=== PATIENT | male | born 2000 | race Caucasian/White ===

== ENCOUNTER 2020-07-17 11:49 | Emergency (ER) | payer SELFPAY ==
--- NOTE | 2020-07-17 11:56 | ED.GENADULT ---
HPI - General Adult General Chief complaint: Skin/Abscess/Foreign Body Stated complaint: infected left 3rd finger Time Seen by Provider: 07/17/20 11:56 Source: patient Mode of arrival: ambulatory Limitations: no limitations History of Present Illness HPI narrative: 20-year-old male patient presents to the [facility] with complaints of left third finger redness and swelling for the past 3 days. Patient states that he thinks he had an ingrown nail and picked at it and states it started getting red and swollen. Patient did try to open it up with a hot needle and states that it is currently draining. Denies any fevers, body aches or chills. Related Data Allergies Allergy/AdvReac Type Severity Reaction Status Date / Time No Known Allergies Allergy Verified 07/17/20 12:04 Review of Systems Review of Systems: Narrative: CONSTITUTIONAL: Denies fever, chills, or sweats. EYES: Denies visual changes, redness, or discharge. ENT: Denies rhinorrhea, congestion, sore throat, or otalgia. CARDIOVASCULAR: Denies chest pain, palpitations, or edema. RESPIRATORY: Denies cough or dyspnea. GASTROINTESTINAL: Denies abdominal pain, nausea, vomiting, or diarrhea. GENITOURINARY: Denies dysuria or hematuria. SKIN: Denies rash or itching. Positive left third finger redness and swelling around the nailbed x3 days MUSCULOSKELETAL: Denies back pain, joint pain, or myalgia. NEUROLOGIC: Denies headache, numbness, or weakness. PSYCHIATRIC: Denies anxiety or depression. PMFSH Social History Social History Gender identity (if verbalized by the patient): Male Comments At the time of my signature I agree with nursing past medical history, surgical, social, and family history. There is no relevant family history pertinent to the presenting complaint. Exam Narrative: Exam Narrative: GENERAL: Well-appearing, well-nourished, and in no acute distress. HEAD: Normocephalic, atraumatic. EYES: PERRLA and EOMI. ENT: Nares clear, no rhinorrhea or epistaxis. Mucous membranes moist. NECK: Supple. No lymphadenopathy CHEST: Clear to auscultation. No respiratory distress. HEART: Regular rate and rhythm. No murmur heard. Normal peripheral pulses. ABDOMEN: Soft, nontender, nondistended, normal active bowel sounds. EXTREMITIES: Normal range of motion. No edema. SKIN: Warm, dry, no rash. Patient has obvious paronychia noted around the left third finger with some swelling, warmth noted around the nailbed. There is some active drainage with some yellow pus coming out of the nailbed when pressure is applied to the area. Patient has good cap refill and good sensation intact. NEURO: No focal deficits. Alert and oriented x3. Course Vital Signs Vital signs: Vital Signs Temperature 36.4 C 07/17/20 12:00 Pulse Rate 78 07/17/20 12:00 Respiratory Rate 16 07/17/20 12:00 Blood Pressure 147/92 H 07/17/20 12:00 Pulse Oximetry 99 07/17/20 12:00 Temperature 36.4 C 07/17/20 12:00 Pulse Rate 78 07/17/20 12:00 Respiratory Rate 16 07/17/20 12:00 Blood Pressure 147/92 H 07/17/20 12:00 Pulse Oximetry 99 07/17/20 12:00 Wound signs reviewed The patient has been informed that they may have pre-hypertension or Hypertension based on a BP reading in the department. I recommend that the patient call the primary care provider listed on their discharge instructions or a physician of their choice this week to arrange follow up for further evaluation of possible pre-hypertension or Hypertension Medical Decision Making Differential Diagnosis Differential Diagnosis: Differential diagnosis: Abscess, cellulitis, hidradenitis, laceration, puncture wound. Paronychia, felon, cellulitis, flexor tenosynovitis, mallet finger, boutonniere deformity, flexor tendons, dislocated digits, unstable fracture, unstable ligamentous injury, closed space infection, carpal tunnel syndrome, contusion. Discussed with patient that he nee
[2020-07-17 12:00] VITALS: BP 147/92; PULSE 78; RESP 16; TEMP 36.4; O2SAT 99
== END 2020-07-17 12:11 | disposition home or self-care (01) ==
PROVIDERS: Emergency Provider Nurse Practitioner Family; PCP Family Medicine
DX: L03.012 Cellulitis of left finger (principal)
CPT/HCPCS: 99213; G0463

== ENCOUNTER 2020-09-03 10:17 | Emergency (ER) | payer SELFPAY ==
--- NOTE | 2020-09-03 10:22 | ED.SKABFB ---
HPI - Skin/Abscess/Foreign Bdy General Chief complaint: Skin/Abscess/Foreign Body Stated complaint: ingrown hair Source: patient and RN notes reviewed Mode of arrival: ambulatory Limitations: no limitations History of Present Illness HPI narrative: 20-year-old male presents with concern for a abscess on his right buttock. Reports he tried to use a needle to drain it last night and got a small amount of white pus. He denies fever, general malaise, change in bowel habits. Denies any history of similar problems in the past. MD complaint: abscess/boil Related Data Allergies Allergy/AdvReac Type Severity Reaction Status Date / Time No Known Allergies Allergy Verified 09/03/20 10:26 Review of Systems Review of Systems: Narrative: CONSTITUTIONAL: Denies malaise, chills, sweats, or fever. CARDIOVASCULAR: Denies chest pain, palpitations, or edema. RESPIRATORY: Denies cough or dyspnea. GASTROINTESTINAL: Denies abdominal pain, nausea, vomiting, diarrhea, bloody, mucous stools, change in bowel habits. SKIN: Reports abscess on the right buttock MUSCULOSKELETAL: Denies myalgia. All systems reviewed & are unremarkable except as noted in HPI and below PMFSH Social History Social History Gender identity (if verbalized by the patient): Male Comments At time of signature, agree with nursing past medical, surgical, social and family history. There is no relevant family history pertinent to the presenting complaint Exam Narrative: Exam Narrative: GENERAL: Well-appearing, well-nourished, and in no acute distress. HEAD: Normocephalic EYES: PERRLA, conjunctivae clear ENT: Mucous membranes moist. NECK: Supple. CHEST: No respiratory distress.Speaks in full sentences. HEART: Regular rate and rhythm. SKIN: Warm, dry. 3 cm x 4 cm area of erythema, induration noted to the right buttock NEURO: Alert and oriented x3. PSYCH: Normal mood and affect Back/Spine/Pelvis: Back/spine/pelvis image: 1. 4 cm x 3 cm area of erythema, induration with central scab, minimal fluctuation. No tracking noted, not in the pilonidal area. Course Course Emergency Course: Patient is aware of diagnosis, understands and agrees to treatment plan. Anticipatory guidance given. Patient agrees to follow-up as directed and is aware of reasons to seek care at the emergency department. Portions of this record may have been created with voice recognition software Vital Signs Vital signs: Vital Signs Temperature 98.0 F 09/03/20 10:32 Pulse Rate 101 H 09/03/20 10:32 Respiratory Rate 16 09/03/20 10:32 Blood Pressure 141/94 H 09/03/20 10:32 Pulse Oximetry 99 09/03/20 10:32 Temperature 98.0 F 09/03/20 10:32 Pulse Rate 101 H 09/03/20 10:32 Respiratory Rate 16 09/03/20 10:32 Blood Pressure 141/94 H 09/03/20 10:32 Pulse Oximetry 99 09/03/20 10:32 Reviewed. Pt has been instructed to follow up with his primary care provider within the next week regarding his elevated blood pressure today. Procedures Abscess I/D other: Date of Incision: 09/03/20 Time of Incision: 10:40 Side (if applicable): right Local Anesthetic: lidocaine 1% Amount of anesthesia used (mL): 3 Technique: incised with #11 blade Amount of fluid expressed (mL): 2 Irrigation: No Packing used?: none I&D Results: Pus MDM - Skin/Abscess/Foreign Bdy MDM Narrative Medical decision making narrative: Verbal consent were obtained. The indication for the procedure was clinical suspicion for an abscess. . The most fluctuant portion of the abscess was incised with an 11 blade scalpel. The abscess cavity of explored and evacuated, all loculations were broken up with a curved hemostat. I was present for this entire procedure and there were no complications Critical Care Time Critical Care Time Critical Care Time: No Discharge Plan Discharge Clinical Impression
[2020-09-03 10:32] VITALS: BP 141/94; PULSE 101; RESP 16; TEMP 36.7; O2SAT 99
== END 2020-09-03 10:56 | disposition home or self-care (01) ==
PROVIDERS: Emergency Provider Nurse Practitioner; PCP Family Medicine
DX: L02.31 Cutaneous abscess of buttock (principal)
CPT/HCPCS: 10060; 99213; G0463

== ENCOUNTER 2020-09-28 09:33 | Emergency (ER) | payer OTHER, SELFPAY ==
--- NOTE | 2020-09-28 09:36 | ED.GENADULT ---
HPI - General Adult General Chief complaint: Skin/Abscess/Foreign Body Stated complaint: Cyst on tail bone Time Seen by Provider: 09/28/20 09:36 Source: patient Mode of arrival: ambulatory Limitations: no limitations History of Present Illness HPI narrative: 20-year-old male patient presents to the [facility] with complaints of wound to the tailbone for the past 6 days. Patient states he has had abscesses there before. Patient states it was very painful however yesterday it did pop and has been draining some yellow discharge. Patient rates his pain today 0 out of 10. Patient states he has been cleaning it with soap and water and putting antibiotic ointment on it. Denies any fevers, body aches or chills. Related Data Allergies Allergy/AdvReac Type Severity Reaction Status Date / Time No Known Allergies Allergy Verified 09/28/20 09:43 Review of Systems Review of Systems: Narrative: CONSTITUTIONAL: Denies fever, chills, or sweats. EYES: Denies visual changes, redness, or discharge. ENT: Denies rhinorrhea, congestion, sore throat, or otalgia. CARDIOVASCULAR: Denies chest pain, palpitations, or edema. RESPIRATORY: Denies cough or dyspnea. GASTROINTESTINAL: Denies abdominal pain, nausea, vomiting, or diarrhea. GENITOURINARY: Denies dysuria or hematuria. SKIN: Denies rash or itching. Positive wound to tailbone x6 days MUSCULOSKELETAL: Denies back pain, joint pain, or myalgia. NEUROLOGIC: Denies headache, numbness, or weakness. PSYCHIATRIC: Denies anxiety or depression. [facility] Social History Social History Gender identity (if verbalized by the patient): Male Comments At the time of my signature I agree with nursing past medical history, surgical, social, and family history. There is no relevant family history pertinent to the presenting complaint. Exam Narrative: Exam Narrative: GENERAL: Well-appearing, well-nourished, and in no acute distress. HEAD: Normocephalic, atraumatic. EYES: PERRLA and EOMI. ENT: Nares clear, no rhinorrhea or epistaxis. Mucous membranes moist. NECK: Supple. No lymphadenopathy CHEST: Clear to auscultation. No respiratory distress. HEART: Regular rate and rhythm. No murmur heard. Normal peripheral pulses. ABDOMEN: Soft, nontender, nondistended, normal active bowel sounds. EXTREMITIES: Normal range of motion. No edema. SKIN: Warm, dry, no rash. Patient has small open abscess with some surrounding erythema but no warmth present to the middle of the coccyx area. There is some active yellow discharge present that was cultured during exam. This provider was able to push out some more pus. Patient tolerated well. NEURO: No focal deficits. Alert and oriented x3. Course Vital Signs Vital signs: Vital Signs Temperature 36.4 C 09/28/20 09:45 Pulse Rate 74 09/28/20 09:45 Respiratory Rate 16 09/28/20 09:45 Blood Pressure 131/70 09/28/20 09:45 Pulse Oximetry 98 09/28/20 09:45 Temperature 36.4 C 09/28/20 09:45 Pulse Rate 74 09/28/20 09:45 Respiratory Rate 16 09/28/20 09:45 Blood Pressure 131/70 09/28/20 09:45 Pulse Oximetry 98 09/28/20 09:45 Vital signs reviewed Procedures Other Procedure Procedure 1: Other Procedure: Yellow pus was pushed out from the abscess on the tailbone. The area was cleaned with saline and antibiotic ointment was applied and covered with Band-Aid. Patient tolerated procedure well. Medical Decision Making Differential Diagnosis Differential Diagnosis: Differential diagnosis: Abscess, cellulitis, hidradenitis, laceration, puncture wound. Plan of care today is to go ahead and culture the pus and send it to the lab for evaluation and treat patient with oral antibiotics today. Encourage patient to do some warm Epson salt baths, continue to clean the area with soap and water and put antibiotic ointment on it to help it heal. Patient verbalized understanding of this. Vital Signs Vital S
[2020-09-28 09:45] VITALS: BP 131/70; PULSE 74; RESP 16; TEMP 36.4; O2SAT 98
== END 2020-09-28 10:00 | disposition home or self-care (01) ==
PROVIDERS: Emergency Provider Nurse Practitioner Family; PCP Family Medicine
DX: L05.01 Pilonidal cyst with abscess (principal)
CPT/HCPCS: 87070; 87147; 87186; 87205; 99213; G0463